=== PATIENT | female | born 1955 | race Caucasian/White ===

== ENCOUNTER 2017-09-02 19:45 | Inpatient (IN) | payer BC ==
--- NOTE | 2017-09-02 20:05 | EDPHY ---
H & P <Isai Rodriguez - Last Filed: 09/02/17 22:27> Stated Complaint: pt lost her balance ans fell down approx 5 stairs right side pain - Personal History Current Tetanus Diphtheria and Acellular Pertussis (TDAP): Yes - Medical/Surgical History Hx Asthma: No Hx Chronic Respiratory Disease: No Hx Diabetes: No Hx Cardiac Disease: No Hx Renal Disease: No Hx Cirrhosis: No Hx Alcoholism: No Hx HIV/AIDS: No Hx Splenectomy or Spleen Trauma: No Other PMH: CVA- hemorhage, left sided weakness, depression, seizurec-section - Social History Smoking Status: Never smoked <Halima Kennedy - Last Filed: 09/03/17 14:35> Time Seen by Provider: 09/02/17 20:00 HPI/ROS: CHIEF COMPLAINT: Left arm pain HISTORY OF PRESENT ILLNESS: This is a 61-year-old female status post intracranial hemorrhage over 30 years ago, cause unknown. She has residual right-sided elio paresis (upper extremity worse than lower extremity) with some sensory loss. As result, she has a seizure disorder for which she takes Tegretol. It has been over 20 years since she had a seizure. She traveled to [place] from [place] earlier today. This evening she was walking up a flight of stairs when she stumbled and fell down 5-6 steps. She did not lose consciousness and does not think that she struck her head. She reports right shoulder, elbow, wrist, and hand pain. She has pain when she takes a deep breath. REVIEW OF SYSTEMS: A ten point review of systems was performed and is negative with the exception of the items mentioned in the HPI. Past medical history: 1. Intracranial hemorrhage insulin 2. Seizure disorder Social history: She lives in [place]. General Appearance: Alert. Vital signs reviewed. Eyes: Pupils equal and round, bilateral conjunctival injection, no discharge. Anicteric. ENT, Mouth: Mucous membranes are dry, no oropharyngeal erythema or edema. Subtle bruising of the left lower lip, no tongue injury. No dental injury. Neck: Nontender to palpation over the cervical spine in the midline. Thorax: Tender to palpation over the right anterolateral ribs, no crepitus. Respiratory: Lungs are clear to auscultation; no wheezes, rales, or rhonchi. Cardiovascular: Regular rate and rhythm; no murmur, rub, or gallop. Gastrointestinal: Abdomen is soft and nontender, no masses or organomegaly, bowel sounds normal. Pelvis: Stable. Skin: Warm and dry, no rashes on exposed skin, normal color. Back: Nontender to palpation over the thoracolumbar spine. Pulses: 2+ radial pulses bilaterally. Extremities: There is an abrasion over the right medial forearm. Tenderness over the right wrist. Tenderness over the right elbow and right anterior shoulder. She is reluctant to test range of motion of her right upper extremity due to pain. No lower extremity tenderness. Neurological: Alert and oriented. 5/5 strength in the left upper and left lower extremity. Sensation intact to light touch over the left upper and left lower extremity. Psychiatric: Normal affect. (Halima eKnnedy) Constitutional: Initial Vital Signs Temperature (C) 36.5 C 09/02/17 19:53 Heart Rate 67 09/02/17 19:53 Respiratory Rate 18 09/02/17 19:53 Blood Pressure 107/66 09/02/17 19:53 O2 Sat (%) 94 09/02/17 19:53 O2 Delivery Mode Room Air Allergies/Adverse Reactions: No Known Allergies Allergy (Unverified 09/03/17 01:01) Home Medications: Medication Instructions Recorded carBAMazepine [Tegretol] 400 mg PO BID 09/02/17 Acetaminophen [Tylenol 325mg (*)] 650 mg PO Q4HRS PRN tab 09/03/17 Escitalopram Oxalate [Lexapro] 60 mg PO DAILY 09/03/17 HYDROmorphone HCL [Dilaudid 2 mg 2 mg PO Q4HRS PRN #30 tab 09/03/17 (*)] Herbals/Supplements -Info Only 1 ea PO DAILY 09/03/17 Multivitamins [Multivitamin (*)] 1 each PO DAILY 09/03/17 Ondansetron Odt [Zofran Odt 4 mg 4 mg PO Q4HRS PRN #30 tab 09/03/17 (*)] Medical Decision Making - Diagnostics Imaging: I viewed and interpreted images myself <Isai Rodriguez - Last Filed: 09/02/17 22:27> <Halima Kennedy - Last Filed: 09/03/17 14:35> ED Course/Re-evaluation: Patient takes ibuprofen regularly and took some this morning. She is experiencing significant pain in her right upper extremity and right chest. IV will be started should be given IV fentanyl. She also appears dehydrated clinically. 1 L normal saline ordered. X-rays of the right shoulder, elbow, wrist and hand ordered. Chest x-ray ordered to assess for pneumothorax and rib fracture. Care transferred to Dr. Rodriguez at 9:00 p.m.. X-rays pending at that time. ( Halima Kennedy) Differential Diagnosis: I considered a differential diagnosis of traumatic injury that includes but is not limited to intracranial hemorrhage, skull fracture, concussion, vertebral injury, spinal cord injury, intrathoracic injury, intra-abdominal injury, long bone fractures, contusions, abrasions, and lacerations. (Halima Kennedy) Other Provider: 2100: Assumed care of this patient from Dr. Kennedy at shift change pending x- ray results. 2149: X-rays reveal two rib fractures on the right side, right humeral fracture of surgical neck, right elbow sprain. Assessed patient and discussed findings. Offered admission for pain management and to arrange OT/PT, but patient would prefer to go home with pain medications. She will be discharged in sling with script for OxyIR and Zofran and standard fracture and sprain care and follow up instructions. Return precautions discussed. Patient spoke with her and has decided she would prefer to be admitted. Hospitalist mary. Spoke with hospitalist service. Dr. Gomes accepts admission. Consulted with Dr. Dorman, orthopedist. He will consult during admission. Agrees with plan for sling. (Isai Rodriguez) - Data Points Medications Given: Acetaminophen (Tylenol) 650 mg PO Q4HRS PRN PRN Reason: Pain, Mild/Fever, Can Take PO Stop: 03/01/18 22:12 Last Admin: 09/03/17 14:04 Dose: 650 mg Carbamazepine (Tegretol) 400 mg PO BID LORA Stop: 03/02/18 11:14 Last Admin: 09/03/17 12:03 Dose: Not Given Hydromorphone HCl (Dilaudid) 2 mg PO Q4HRS PRN PRN Reason: Pain, Severe Able to Take PO Stop: 09/12/17 22:12 Last Admin: 09/03/17 14:27 Dose: 2 mg Hydromorphone/Sodium Chloride (Hydromorphone) 0.2 - 0.4 mg IVP Q4HRS PRN PRN Reason: Pain, Severe Unable to Take PO Stop: 09/12/17 22:12 Last Admin: 09/03/17 06:22 Dose: 0.4 mg Ondansetron HCl (Zofran) 4 mg IVP Q4HRS PRN PRN Reason: Nausea/Vomiting, Can't Take PO Stop: 03/01/18 22:12 Last Admin: 09/02/17 23:33 Dose: 4 mg Ondansetron HCl (Zofran Odt) 4 mg PO Q4HRS PRN PRN Reason: Nausea/Vomiting, Use 1st Stop: 03/01/18 22:12 Last Admin: 09/03/17 10:44 Dose: 4 mg Discontinued Medications Carbamazepine (Tegretol) 200 mg PO ONCE ONE Stop: 09/03/17 06:32 Last Admin: 09/03/17 06:54 Dose: Not Given Carbamazepine (Tegretol) 400 mg PO ONCE ONE Stop: 09/03/17 06:45 Last Admin: 09/03/17 06:52 Dose: 400 mg Fentanyl (Sublimaze) 75 mcg IVP EDNOW ONE Stop: 09/02/17 20:17 Last Admin: 09/02/17 20:41 Dose: 75 mcg Sodium Chloride (Ns) 1,000 mls @ 0 mls/hr IV EDNOW ONE; Wide Open PRN Reason: Protocol Stop: 09/02/17 20:18 Last Admin: 09/02/17 20:40 Dose: 1,000 mls Morphine Sulfate (Morphine) 6 mg IVP EDNOW ONE Stop: 09/02/17 21:25 Last Admin: 09/02/17 21:35 Dose: 6 mg Ondansetron HCl (Zofran Odt 4 Mg Prepack#2) 1 btl TAKEHOME EDNOW ONE Stop: 09/02/17 22:01 Last Admin: 09/02/17 22:05 Dose: Not Given Oxycodone/Acetaminophen (Percocet 5/325mg Prepack#4) 1 btl TAKEHOME EDNOW ONE Stop: 09/02/17 22:01 Last Admin: 09/02/17 22:05 Dose: Not Given Departure <Isai Rodriguez - Last Filed: 09/02/17 22:27> <Halima Kennedy - Last Filed: 09/03/17 14:35> - Departure Disposition: [facility] Inpatient Acute Clinical Impression: Fracture, ribs Qualifiers: Encounter type: initial encounter Rib fracture type: multiple ribs Fracture type: closed Laterality: right Qualified Code(s): S22.41XA - Multiple fractures of ribs, right side, initial encounter for closed fracture Humerus fracture Qualifiers: Encounter type: initial encounter Humerus Location: surgical neck Fracture type : closed Fracture morphology: unspecified fracture morphology Fracture alignment : nondisplaced Laterality: right Qualified Code(s): S42.214A - Unspecified nondisplaced fracture of surgical neck of right humerus, initial encounter for closed fracture Sprain of right elbow Qualifiers: Encounter type: initial encounter Qualified Code(s): S53.401A - Unspecified sprain of right elbow, initial encounter Condition: Fair Report Scribed for: Isai Rodriguez Report Scribed by: Carlyn Temple Date of Report: 09/02/17 Time of Report: 22:02 <Isai Rodriguez - Last Filed: 09/02/17 22:27>
[2017-09-02] MEDS ORDERED: fentaNYL 100 MCG/2 ML INJ IVP ONE (20:16)
[2017-09-02] MEDS ORDERED: NS 1,000 ML IV ONE (20:17)
[2017-09-02] MEDS ORDERED: ONDANSETRON 4MG PREPACK#2 BTL TAKEHOME ONE (22:00)
[2017-09-02] MEDS ORDERED: OXYCODONE/APAP 5/325MG PREPACK#4 BTL TAKEHOME ONE (22:00)
[2017-09-02] MEDS ORDERED: ONDANSETRON 4 MG/2 ML VIAL IVP PRN (22:13)
[2017-09-02] MEDS: HYDROmorphONE/DILAUDID 2 MG TAB PO PRN (23:33)
[2017-09-03] MEDS: HYDROmorphone HCL/NS 0.5 MG/ML SYR IVP PRN ×3 (00:13→06:22)
--- NOTE | 2017-09-03 00:47 | PDGENHP ---
History and Physical - Chief Complaint Fall, pain - History of Present Illness 61 yo F w/ hx of ICH >30 yrs ago and residual R sided weakness and seizure d/o presents after a fall. Today she stumbled while on the stairs and fell about 5 steps. She denies LOC or head trauma. She reported R shoulder, elbow, wrist, and hand pain as a result of the fall. In the ED work-up was notable for R humeral fracture and rib fractures. She is being admitted for observation and pain control. History Information - Allergies/Home Medication List Allergies/Adverse Reactions: Unable to Assess Allergy (Unverified 09/02/17 19:53) Home Medications: ALPRAZolam [Xanax 0.5 MG (*)] 0.5 mg PO TID 09/02/17 [Last Taken Unknown] Ibuprofen [Motrin (*)] 800 mg PO TID 09/02/17 [Last Taken Unknown] Lexapro 09/02/17 [Last Taken Unknown] carBAMazepine [Tegretol] 400 mg PO BID 09/02/17 [Last Taken 09/02/17] I have personally reviewed and updated: family history, medical history - Past Medical History CVA - Family History Positive for: cancer - Social History Smoking Status: Never smoked Review of Systems Review of Systems: ROS: 10pt was reviewed & negative except for what was stated in HPI & below Physical Exam Physical Exam: Temp Pulse Resp BP Pulse Ox 36.5 C 70 16 125/70 H 90 L 09/02/17 19:53 09/02/17 22:46 09/02/17 22:46 09/02/17 22:46 09/02/17 22:46 Constitutional: appears nourished, uncomfortable Eyes: PERRL, EOMI Ears, Nose, Mouth, Throat: moist mucous membranes, no oral mucosal ulcers Cardiovascular: regular rate and rhythym, systolic murmur Respiratory: no respiratory distress, clear to auscultation Gastrointestinal: normoactive bowel sounds, soft, non-tender abdomen Musculoskeletal: other (R arm in sling) Neurologic: AAOx3, weakness (R-sided weakness), numbness (RUE) Psychiatric: interacting appropriately, not anxious Lab Data & Imaging Review Imaging Review: Imaging Impressions Elbow X-Ray 09/02/17 20:16 Impression: There is no acute osseous abnormality identified. Right Wrist (3 Views, at 8:20 PM): The bones are significantly demineralized. The radiocarpal and intercarpal alignments are maintained. The patient was unable to perform an ulnar deviation view, limiting assessment of the navicular. On the lateral view, there may be slight dorsal subluxation of the ulna relative to the radius. The pronator fat pad is not displaced. Impression: 1. Bone demineralization. 2. There is no acute fracture identified, although positioning is limited. 3. Questionable radial-ulnar subluxation. If there is a high clinical concern regarding an occult fracture, conservative management and short-term repeat radiographic follow-up in 7-14 days is suggested. Right Hand (3 Views, at 8:22 PM): The bones are demineralized. There appears to be radial/ulnar subluxation. The patient's thumb is flexed, and the hand is clamped limiting assessment, with flexion at the PIP and DIP joints. There is no apparent acute fracture. Impression: There is no acute fracture identified, although the study is positionally limited. When clinically feasible, a DEXA scan is suggested to further evaluate the patient's pronounced bone demineralization. Hand X-Ray 09/02/17 20:16 Impression: There is no acute osseous abnormality identified. Right Wrist (3 Views, at 8:20 PM): The bones are significantly demineralized. The radiocarpal and intercarpal alignments are maintained. The patient was unable to perform an ulnar deviation view, limiting assessment of the navicular. On the lateral view, there may be slight dorsal subluxation of the ulna relative to the radius. The pronator fat pad is not displaced. Impression: 1. Bone demineralization. 2. There is no acute fracture identified, although positioning is limited. 3. Questionable radial-ulnar subluxation. If there is a high clinical concern regarding an occult fracture, conservative management and short-term repeat radiographic follow-up in 7-14 days is suggested. Right Hand (3 Views, at 8:22 PM): The bones are demineralized. There appears to be radial/ulnar subluxation. The patient's thumb is flexed, and the hand is clamped limiting assessment, with flexion at the PIP and DIP joints. There is no apparent acute fracture. Impression: There is no acute fracture identified, although the study is positionally limited. When clinically feasible, a DEXA scan is suggested to further evaluate the patient's pronounced bone demineralization. Shoulder X-Ray 09/02/17 20:16 Impression: 1. Acute fracture of the proximal right humerus at the surgical neck extending to the base of the greater tuberosity. 2. Fracture of the right coracoid process. 3. Mildly displaced fractures involving the posterolateral right sixth and seventh ribs. 4. Bone demineralization. When clinically feasible, a DEXA scan is suggested. Wrist X-Ray 09/02/17 20:16 Impression: There is no acute osseous abnormality identified. Right Wrist (3 Views, at 8:20 PM): The bones are significantly demineralized. The radiocarpal and intercarpal alignments are maintained. The patient was unable to perform an ulnar deviation view, limiting assessment of the navicular. On the lateral view, there may be slight dorsal subluxation of the ulna relative to the radius. The pronator fat pad is not displaced. Impression: 1. Bone demineralization. 2. There is no acute fracture identified, although positioning is limited. 3. Questionable radial-ulnar subluxation. If there is a high clinical concern regarding an occult fracture, conservative management and short-term repeat radiographic follow-up in 7-14 days is suggested. Right Hand (3 Views, at 8:22 PM): The bones are demineralized. There appears to be radial/ulnar subluxation. The patient's thumb is flexed, and the hand is clamped limiting assessment, with flexion at the PIP and DIP joints. There is no apparent acute fracture. Impression: There is no acute fracture identified, although the study is positionally limited. When clinically feasible, a DEXA scan is suggested to further evaluate the patient's pronounced bone demineralization. Chest X-Ray 09/02/17 20:19 Impression: Posttraumatic changes to the proximal right humerus, right coracoid process, and the right rib cage, with mild right basilar subsegmental atelectasis, and no evidence of pneumothorax. Assessment & Plan Assessment: 61 yo F w/ hx of ICH and seizure d/o presents after a mechanical fall found to have various fractures. Plan: 1. Proximal R humeral fx - Acute fracture of the proximal right humerus at the surgical neck extending to the base of the greater tuberosity. - Admit for observation - Dilaudid PO, IV for pain control - Will have ED consult Orthopedics - PT/OT evaluations 2. Rib fractures - Mildly displaced fractures involving the posterolateral right sixth and seventh ribs. - Dilaudid PO, IV for pain control 3. Hx ICH - With resultant R sided weakness. - PT/OT evaluations 4. Seizure d/o - On Tegretol, has not had a seizure for many years. Diet - Regular Code - Full Ppx - SCDs Dispo - Admit under observation status
[2017-09-03] MEDS: HYDROmorphONE/DILAUDID 2 MG TAB PO PRN ×6 (02:29→21:40)
[2017-09-03 04:45] LABS: PLATELET COUNT 190 10^3/uL (150-400)
[2017-09-03] MEDS ORDERED: carBAMazepine 200 MG TAB PO ONE ×2 (06:31→06:44)
[2017-09-03] MEDS: ONDANSETRON DISINTEGRATING 4 MG TAB PO PRN ×2 (10:44→18:38)
[2017-09-03] MEDS: carBAMazepine 200 MG TAB PO SCH ×2 (12:03→19:49)
--- NOTE | 2017-09-03 13:05 | SOAPPROG ---
[facility] Progress Note Assessment/Plan: Assessment: Plan: 09/03/17 13:04 shoulder films reviewed nonsurgical proximal humerus fracture sling for comfort needs followup xrays in 7-10 days anticipate starting a gentle ROM /pendulum program in 3 weeks if repeat xrays look stable Objective: Vital Signs Temp Pulse Resp BP Pulse Ox 36.3 C 72 18 128/74 H 90 L 09/03/17 12:17 09/03/17 12:17 09/03/17 12:17 09/03/17 12:17 09/03/17 12:17 Laboratory Results 09/03/17 04:27 09/03/17 04:27 09/02/17 09/03/17 09/04/17 05:59 05:59 05:59 Intake Total 1000 450 Output Total 350 350 Balance 650 100 ICD10 Worksheet Patient Problems: Problems Problem Status Onset Fracture, ribs Acute Humerus fracture Acute Sprain of right elbow Acute
[2017-09-03] MEDS: ACETAMINOPHEN 325 MG TAB PO PRN ×2 (14:04→18:38)
--- NOTE | 2017-09-03 15:43 | HOSPPROG ---
Hospitalist Progress Note Assessment/Plan: 61 yo F w/ hx of ICH and seizure d/o presents after a mechanical fall found to have various fractures. First encounter, chart reviewed. D/W Dr Dorman. Plan: 1. Proximal R humeral fx - -Acute fracture of the proximal right humerus at the surgical neck extending to the base of the greater tuberosity. -non surgical - Dilaudid PO, IV for pain control -Dr Dorman consulted - PT/OT evaluations 2. Rib fractures - -Mildly displaced fractures involving the posterolateral right sixth and seventh ribs. - Dilaudid PO, IV for pain control 3. Hx ICH - -With resultant R sided weakness. - PT/OT evaluations 4. Seizure d/o - -On Tegretol, has not had a seizure for many years. Diet - Regular Code - Full Ppx - SCDs Dispo -change to inpt status requires better pain control Subjective: Still having significant pain. Tired from lack of sleep. Objective: Vital Signs Temp Pulse Resp BP Pulse Ox 36.3 C 72 18 128/74 H 90 L 09/03/17 12:17 09/03/17 12:17 09/03/17 12:17 09/03/17 12:17 09/03/17 12:17 Laboratory Results 09/03/17 04:27 09/03/17 04:27 09/02/17 09/03/17 09/04/17 05:59 05:59 05:59 Intake Total 1000 450 Output Total 350 350 Balance 650 100 - Physical Exam Constitutional: appears nourished, chronically ill appearing, uncomfortable Eyes: PERRL, anicteric sclera, EOMI Ears, Nose, Mouth, Throat: moist mucous membranes, hearing normal, ears appear normal Cardiovascular: regular rate and rhythym, No irregularly irregular, No JVD Respiratory: no respiratory distress, no rales or rhonchi, reduced air movement Gastrointestinal: normoactive bowel sounds, No tenderness, No ascites Skin: warm, normal color, No mottled Musculoskeletal: joint tenderness, pain with ROM, muscular tenderness, generalized weakness, No normal joint ROM Neurologic: AAOx3, weakness Psychiatric: interacting appropriately, not anxious, not encephalopathic, thought process linear ICD10 Worksheet Patient Problems: Problems Problem Status Onset Fracture, ribs Acute Humerus fracture Acute Sprain of right elbow Acute
--- NOTE | 2017-09-03 16:18 | PDMN ---
Medical Necessity Medical necessity: C/M review: Patient meets INPT criteria under [facility] [place] [facility]-545 Rib fracture, Musculoskeletal disease GRG (Acute proximal humeral fracture): Acute - right proximal humeral fracture at the surgical neck extending to the base of the greater tuberosity (non surgical), mildly displaced posteriolateral right 6th and 7th rib fractures, acute and persistent severe pain requiring ongoing oral and IV Dilaudid, pain management, pulse oximetry, supplemental O2, acute inpt PT/PT, comorbid mechanical fall just prior to this admission, history of intracranial hemorrhage with resultant right sided weakness, seizure disorder. [employer] anticipates > 2 MN LOS for ongoing med nec for eval and TX of above.
[2017-09-03] MEDS: LIDOCAINE 4%/MENTHOL 1% PATCH TD SCH (17:23)
[2017-09-03] MEDS ORDERED: BISACODYL 10 MG SUPP PR PRN (17:36)
[2017-09-03] MEDS ORDERED: MAGNESIUM HYDROXIDE 30 ML UDCUP PO PRN (17:36)
[2017-09-03] MEDS ORDERED: LACTULOSE 20 GM/30 ML UDCUP PO PRN (17:36)
[2017-09-03] MEDS ORDERED: POLYETHYLENE GLYCOL 3350 17 GM PKT PO PRN (17:36)
--- NOTE | 2017-09-03 18:54 | ASMTCMCOM ---
CM Note CM Note Notes: Pt admitted with R humeral fx & rib fx r/t mechanical fall. PT/OT ordered awaiting evals. CM will follow. Date Signed: 09/03/2017 06:54 PM Electronically Signed By:Andie Jolley RN
[2017-09-03] MEDS: SENNOSIDES/DOCUSATE SODIUM TAB PO SCH (19:50)
[2017-09-03] MEDS ORDERED: PATCH REMOVAL 1 EA PATCH TD SCH (21:00)
[2017-09-04] MEDS: HYDROmorphONE/DILAUDID 2 MG TAB PO PRN ×4 (02:57→15:07)
--- NOTE | 2017-09-04 04:33 | GDS ---
[f rep st] DISCHARGE SUMMARY DISCHARGE DIAGNOSES: 1. Proximal right humeral fracture. 2. Rib fractures. 3. History of right-sided weakness. 4. Seizure disorder. CONSULTATIONS: Dr. Dorman of Orthopedics. STUDIES AND PROCEDURES: 1. Elbow x-ray. 2. Hand x-ray. 3. Shoulder x-ray. 4. Wrist x-ray. 5. Chest x-ray. PHYSICAL EXAM: GENERAL: The patient is alert. VITAL SIGNS: Afebrile at 36.3 , pulse 72, respiratory rate is 18, blood pressure is 128/74. She is saturating 90% on room air. I have seen and evaluated the patient on the day of discharge. HOSPITAL COURSE: Patient is a 61-year-old female visiting from [place] of state when she stumbled on some stairs and took a fall. She presented to the emergency room with complaints of pain secondary to her fall. She was evaluated and diagnosed with a proximal right humeral fracture, as well as several rib fractures. She did receive a consultation from Dr. Dorman of Orthopedics and has received supportive pain management during this hospitalization. She is stable with good pain control and eager to be discharged home to her sister's house. There are no pending studies. DISCHARGE MEDICATIONS: Include Dilaudid 2 mg, as well as Zofran. FOLLOWUP: The patient will follow with her primary care physician when she returns home to [place] or return to the emergency room as needed. I have had a long discussion with the patient, as well as her sister, with the prophylaxis of pneumonia and increasing her movement and staying active. They are both in agreement with this plan. I reviewed the disposition with Dr. Dorman who is in agreement with the plan. /[id number]/MODL MTDD
[2017-09-04] MEDS: ACETAMINOPHEN 325 MG TAB PO PRN ×2 (07:15→11:14)
[2017-09-04] MEDS: SENNOSIDES/DOCUSATE SODIUM TAB PO SCH (08:02)
[2017-09-04] MEDS: carBAMazepine 200 MG TAB PO SCH (08:03)
[2017-09-04] MEDS: LIDOCAINE 4%/MENTHOL 1% PATCH TD SCH (08:04)
[2017-09-04] MEDS ORDERED: ESCITALOPRAM OXALATE 10 MG TAB PO SCH (09:00)
[2017-09-04] MEDS ORDERED: MULTIVITAMINS 1 EACH TAB PO SCH (09:00)
[2017-09-04] MEDS ORDERED: ESCITALOPRAM OXALATE PO SCH (09:00)
[2017-09-04] MEDS ORDERED: Herbals/Supplements -Info Only PO SCH (09:00)
[2017-09-04 12:02] VITALS: BP 125/74; PULSE 91; RESP 16; TEMP 98.4; O2SAT 95
--- NOTE | 2017-09-04 14:30 | GCON ---
[f rep st] CONSULTATION ORTHOPEDIC ER CONSULT. DATE OF CONSULTATION: 09/04/2017 CHIEF COMPLAINT: Right shoulder pain. ASSOCIATED DIAGNOSES: 1. Right-sided hemiparesis with sensory loss at baseline. 2. Seizure disorder, on Tegretol. HISTORY: A 61-year-old female who is visiting family. She fell down 5 stairs. Was seen in the [facility] room on Monday, trauma evaluation. She lives on the [facility]. Describes right -sided arm pain and pain with deep breathing. Please see details of ER H and P and admitting H and P. EXAMINATION: Pertinent orthopedic examination reveals a well-placed sling on the right side. Tender right shoulder. She has decreased sensation in the median, radial, and ulnar distribution. No sign ificant active motion of her wrist and fingers at baseline. She is sitting in a chair currently. IMAGING: Reviewed. Shows a nondisplaced surgical neck fracture of the right proximal humerus. Wris t and hand films look negative with slight osteopenia. PLAN: Patient was placed in a sling for the nondisplaced surgical neck fracture of the right proxima l humerus. We discussed treatment plan. She gets 3 times a week physical therapy who comes to her h ouse. Considering she had limited mobility of the shoulder, I am going to make her sling optional, h opefully not as much of a fall risk for her. She is to continue her core exercises, length strengthe jennifer exercises for fall risk precautions. She should follow up with her orthopedic surgeon in [facility] within the next week or 2 for repeat views of her right shoulder. Gentle passive and active mandy muñoz range of motion program as she can would be helpful starting in 2 weeks. /[id number]/MODL
--- NOTE | 2017-09-04 16:48 | ASMTCMCOM ---
CM Note CM Note Notes: [employer] UP OPERATOR rec f/u call, OT rec home/HHC/24/hr sup/inpat rehab, PT rec 24/hr sup. Pt medically stable for d/c to sisters home w 24 hr supervision from and family. Alysia flew in from [facility] and will A in getting pt home. Date Signed: 09/04/2017 04:48 PM Electronically Signed By:TABBY Meza
== END 2017-09-04 15:08 | disposition home or self-care (01) | DRG 563 ==
LOC: F3N 22:54 → OBSVTOIN 09-03 15:51
PROVIDERS: ADMIT Student in an Organized Health Care Education/Training Program; ATTEND Internal Medicine
DX: S42.214A Unspecified nondisplaced fracture of surgical neck of right humerus, initial encounter for closed fracture (principal); S22.41XA Multiple fractures of ribs, right side, initial encounter for closed fracture; S42.134A Nondisplaced fracture of coracoid process, right shoulder, initial encounter for closed fracture; S53.401A Unspecified sprain of right elbow, initial encounter; W10.9XXA Fall (on) (from) unspecified stairs and steps, initial encounter; Y99.8 Other external cause status; I69.151 Hemiplegia and hemiparesis following nontraumatic intracerebral hemorrhage affecting right dominant side; F32.9 Major depressive disorder, single episode, unspecified; G40.909 Epilepsy, unspecified, not intractable, without status epilepticus
CPT/HCPCS: 92523-GN; 96374; 97112-GO; 97162-GP; 97166-GO; 97535-GO; A4565; G0378; J1170; J2270; J2405; J3010